=== PATIENT | female | born 1955 | race Caucasian/White ===

== ENCOUNTER → 2021-03-18 15:57 | Outpatient (BNVA) | payer MEDICAID, SELFPAY | PROVIDERS: PCP Nurse Practitioner Family; Visit Provider Internal Medicine Cardiovascular Disease | DX: I50.41 Acute combined systolic (congestive) and diastolic (congestive) heart failure (principal); R79.89 Other specified abnormal findings of blood chemistry; I47.1 Supraventricular tachycardia; J96.11 Chronic respiratory failure with hypoxia; Z99.81 Dependence on supplemental oxygen; J44.9 Chronic obstructive pulmonary disease, unspecified | CPT/HCPCS: 80048; 83735; 83880; 84439; 84443; 84481 ==

== ENCOUNTER 2021-04-17 07:54 | Outpatient (CLI) | payer MEDICAID, SELFPAY ==
--- NOTE | 2021-04-17 08:00 | USCV_ITS ---
Yamilka Haley Age: 65 Gender: F : 1955 Exam Date: 04/17/2021 08:17 Ordering Phys: Zenobia Montana MD ([email or web address]) Technologist: Desiree Xavier [place] [facility] [place]ication: Acute CHF , Sob BP: 132 / 80 HR: 94 Rhythm: Sinus Technical Quality: Good MEASUREMENTS (Male / Female) Normal Values 2D ECHO LV Diastolic Diameter PLAX 4.6 cm 4.2 - 5.9 / 3.9 - 5.3 cm LV Systolic Diameter PLAX 3.9 cm IVS Diastolic Thickness 0.9 cm 0.6 - 1.0 / 0.6 - 0.9 cm IVS Systolic Thickness 1.1 cm LVPW Diastolic Thickness 0.8 cm 0.6 - 1.0 / 0.6 - 0.9 cm LVPW Systolic Thickness 0.8 cm LVOT Diameter 2.0 cm LV Ejection Fraction 2D Teich 31.8 % LV Ejection Fraction MOD 2C 61.6 % LV Ejection Fraction 2C AL 61.2 % LA Diameter 2.7 cm LA Width 2.9 cm LA Height 3.8 cm RA Width 3.4 cm RA Height 4.6 cm Aorta at Sinotubular Diameter 3.1 cm DOPPLER AV Peak Velocity 125.0 cm/s LVOT Peak Velocity 74.0 cm/s AV Area Cont Eq vti 1.7 cm squared AV Area Cont Eq pk 1.9 cm squared MV Peak Velocity 115.0 cm/s MV Area PHT 5.0 cm squared Mitral E to A Ratio 0.2 MV E' Velocity 11.5 cm/s Mitral E to MV E' Ratio 5.0 Mitral E to LV E' Lateral Ratio 5.3 Mitral E to LV E' Septal Ratio 4.8 TR Peak Velocity 370.2 cm/s TR Peak Gradient 54.8 mmHg Right Atrial Pressure 8.0 mmHg Pulmonary Artery Systolic Pressu 62.8 mmHg PV Peak Velocity 76.0 cm/s RV Acceleration Time 0.1 s RV Ejection Time 0.3 s RV AcT/ET 0.3 FINDINGS Left Ventricle Normal left ventricular size, systolic function and wall thickness, with no regional wall motion abnormalities. Left ventricular ejection fraction is estimated at 60 %. Grade I diastolic dysfunction (abnormal relaxation filling pattern), normal to mildly elevated filling pressures. Flattened septum in systole consistent with right ventricle pressure overload. Right Ventricle Moderately increased right ventricular size. Moderately decreased right ventricular systolic function. Mildly increased right ventricular wall thickness. Severe pulmonary hypertension, RVSP 75 mmHg. Prominent moderator band in right ventricle. Right Atrium Mildly increased right atrial size. Left Atrium Mildly increased left atrial size. Mitral Valve Structurally normal mitral valve. No mitral valve stenosis. Mild mitral valve regurgitation. Aortic Valve Structurally normal trileaflet aortic valve. No aortic valve stenosis. Cagx-ig-ifrvabwy aortic valve regurgitation. Tricuspid Valve Structurally normal tricuspid valve. No tricuspid valve stenosis. Uorzjnve-lq-iwpraa tricuspid valve regurgitation. Pulmonic Valve Structurally normal pulmonic valve. No pulmonary valve stenosis. Oryj-nk-uocktmpw pulmonary valve regurgitation. Pericardium No pericardial effusion. Aorta Normal sized aortic root. CONCLUSIONS 1. Normal left ventricular size, systolic function and wall thickness, with no regional wall motion abnormalities. Left ventricular ejection fraction is estimated at 60 %. Grade I diastolic dysfunction (abnormal relaxation filling pattern), normal to mildly elevated filling pressures. Flattened septum in systole consistent with right ventricle pressure overload. 2. Moderately dilated right ventricular size with moderately decreased right ventricular systolic function. Mildly increased right ventricular wall thickness. Severe pulmonary hypertension, RVSP 75 mmHg. 3. Mild biatrial enlargement. 4. Iwwnojti-jw-mnvipd tricuspid valve regurgitation. 5. Myby-sg-ehgtrzmc pulmonary and aortic valve regurgitation. 6. No prior similar studies to compare. Zenobia Montana MD (Electronically Signed) Final Date: 20 April 2021 17:30 S
== END 2021-04-17 07:55 | disposition home or self-care (01) ==
PROVIDERS: PCP Nurse Practitioner Family; Visit Provider Internal Medicine Cardiovascular Disease
DX: I50.41 Acute combined systolic (congestive) and diastolic (congestive) heart failure (principal); I08.2 Rheumatic disorders of both aortic and tricuspid valves
CPT/HCPCS: 93306

== ENCOUNTER → 2021-05-27 11:19 | Outpatient (BNVA) | payer MEDICAID, SELFPAY | PROVIDERS: PCP Nurse Practitioner Family; Visit Provider Internal Medicine Cardiovascular Disease | DX: I50.41 Acute combined systolic (congestive) and diastolic (congestive) heart failure (principal) | CPT/HCPCS: 80053; 83735; 83880 ==

== ENCOUNTER → 2021-07-17 10:40 | Outpatient (BNVA) | payer MEDICAID, SELFPAY | PROVIDERS: PCP Nurse Practitioner Family; Referring Provider Internal Medicine Cardiovascular Disease; Visit Provider Internal Medicine Cardiovascular Disease | DX: R06.00 Dyspnea, unspecified (principal); I35.1 Nonrheumatic aortic (valve) insufficiency; I50.41 Acute combined systolic (congestive) and diastolic (congestive) heart failure | CPT/HCPCS: 80048; 85025; 85610; 87635 ==

== ENCOUNTER 2021-07-23 11:48 | Outpatient (CLI) | payer MEDICAID, SELFPAY ==
[2021-07-23 12:15] VITALS: BP 154/79; PULSE 70; RESP 16; TEMP 36.5; O2SAT 98; BMI 14.4
[2021-07-23] MEDS: diphenhydrAMINE 50 mg Capsule PO (12:45)
--- NOTE | 2021-07-23 14:43 | PC.NURSE ---
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 Dr Leger spoke with the patient and her family. They verbalized their understanding. The patient will be rescheduled and called with a new date as soon as this nurse can get through to centralized scheduling.
== END 2021-07-23 11:49 | disposition home or self-care (01) ==
LOC: CCL 11:49
PROVIDERS: PCP Nurse Practitioner Family; Visit Provider Internal Medicine Cardiovascular Disease
DX: R07.9 Chest pain, unspecified (principal); Z53.9 Procedure and treatment not carried out, unspecified reason
CPT/HCPCS: J1644; J2250; J3010; J3490; Q0163